=== PATIENT | female | born 1980 | race Caucasian/White ===

== ENCOUNTER 2018-10-06 09:48 | Emergency (ER) | payer OTHER ==
[2018-10-06 09:57] VITALS: BP 127/77; PULSE 87; TEMP 98.1; BMI 25.7
--- NOTE | 2018-10-06 10:16 | PDOC ---
Attending Attestation - Resident Resident Name: Zachery Acevedo - HPI HPI: 10/06/18 11:05 Pt presents to the ED complaining of a one day history of sore throat and generalized myalgias. Denies fever, nausea or vomiting. States that she is able to tolerate PO, although it hurts to swallow. History of frequent strep infections in the past. 10/06/18 11:05 10/06/18 11:11 - Physicial Exam PE: 10/06/18 11:13 Agree with resident exam. Patient is alert and oriented x 3 and in no acute distress. HEENT exam: no trismus, mild tonsilar swelling and erythema, with some exudate. - Medical Decision Making 10/06/18 11:14 Pt presents to the ED complaining of sore throat. Tolerating PO. Rapid strep is negative. Will check flu and discharge home if negative. Will consider tamiflu if flu is positive.
--- NOTE | 2018-10-06 10:19 | PDOC ---
History of Present Illness <Lolita Paul - Last Filed: 10/06/18 11:28> - History of Present Illness Initial Comments: 10/06/18 10:14 Ms. Ray is a 38 yo female w/ pmh of previous frequent strep throat ([employer] on left side 2 years) who presents for evaluation of 1 day history of body aches and sore throat. Patient complaining of fatigue and difficulty swallowing as well as chills and tension-like headache. The patient denies chest pain, shortness of breath, and dizziness. Denies fever , nausea, vomit, diarrhea and constipation. Denies dysuria, frequency, urgency and hematuria. 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) HTN: No - Reproductive History (#): 5 Para: 3 Cervical CA: No Dysfunctional Uterine Bleeding: No Ectopic : No Endometrial CA: No Polycystic Ovaries: No Therapeutic (s) & number: Yes (2) Tubal Ligation: No Spontaneous : 0 - Suicide/Smoking/Psychosocial Hx Smoking History: Never smoked Have you smoked in the past 12 months: No Hx Alcohol Use: No Drug/Substance Use Hx: No Substance Use Type: None <Zachery Acevedo - Last Filed: 10/06/18 13:52> - Past Medical History Allergies/Adverse Reactions: Allergies Allergy/AdvReac Type Severity Reaction Status Date / Time No Known Allergies Allergy Verified 07/23/13 13:24 Home Medications: Ambulatory Orders No Home Medications 0 dose .ROUTE UTDICT 07/20/13 Review of Systems - Review of Systems Comments:: 10/06/18 10:18 GENERAL/CONSTITUTIONAL: +Chills as described with body aches. No weakness. HEAD, EYES, EARS, NOSE AND THROAT: +Sore throat as described. No change in vision. No ear pain or discharge. CARDIOVASCULAR: No chest pain or shortness of breath RESPIRATORY: No cough, wheezing, or hemoptysis. GASTROINTESTINAL: No nausea, vomiting, diarrhea or constipation. GENITOURINARY: No dysuria, frequency, or change in urination. MUSCULOSKELETAL: No joint or muscle swelling or pain. No neck or back pain. SKIN: No rash NEUROLOGIC: +Headache as described, no vertigo, loss of consciousness, or change in strength/sensation. ENDOCRINE: No increased thirst. No abnormal weight change HEMATOLOGIC/LYMPHATIC: No anemia, easy bleeding, or history of blood clots. ALLERGIC/IMMUNOLOGIC: No hives or skin allergy. <Zachery Acevedo - Last Filed: 10/06/18 13:52> *Physical Exam - Vital Signs Last Vital Signs Temp Pulse Resp BP Pulse Ox 98.1 F 87 15 127/77 100 10/06/18 09:49 10/06/18 09:49 10/06/18 09:49 10/06/18 09:49 10/06/18 09:49 <Lolita Paul - Last Filed: 10/06/18 11:28> - Vital Signs Last Vital Signs Temp Pulse Resp BP Pulse Ox 98.1 F 87 15 127/77 100 10/06/18 09:49 10/06/18 09:49 10/06/18 09:49 10/06/18 09:49 10/06/18 09:49 - Physical Exam Comments: 10/06/18 10:18 GENERAL: Awake, alert, and fully oriented, in no acute distress HEAD: No signs of trauma, normocephalic, atraumatic EYES: PERRLA, EOMI, sclera anicteric, conjunctiva clear ENT: +Oropharynx significant for exudates BENITA. Auricles normal inspection, hearing grossly normal, nares patent. Moist mucosa NECK: Normal ROM, supple, no lymphadenopathy, JVD, or masses LUNGS: No distress, speaks full sentences, clear to auscultation bilaterally HEART: Regular rate and rhythm, normal S1 and S2, no murmurs, rubs or gallops, peripheral pulses normal and equal bilaterally. ABDOMEN: Soft, nontender, normoactive bowel sounds. No guarding, no rebound. No masses EXTREMITIES: Normal inspection, Normal range of motion, no edema. No clubbing or cyanosis. NEUROLOGICAL: Cranial nerves II through XII grossly intact. Normal speech, normal gait, no focal sensorimotor deficits SKIN: Warm, Dry, normal turgor, no rashes or lesions noted. <Zachery Acevedo - Last Filed: 10/06/18 13:52> Moderate Sedation - Procedure Monitoring Vital Signs: Procedure Monitoring Vital Signs Temperature 98.1 F 10/06/18 09:49 Pulse Rate 87 10/06/18 09:49 Respiratory Rate 15 10/06/18 09:49 Blood Pressure 127/77 10/06/18 09:49 O2 Sat by Pulse Oximetry (%) 100 10/06/18 09:49 <Lolita Paul - Last Filed: 10/06/18 11:28> - Procedure Monitoring Vital Signs: Procedure Monitoring Vital Signs Temperature 98.1 F 10/06/18 09:49 Pulse Rate 87 10/06/18 09:49 Respiratory Rate 15 10/06/18 09:49 Blood Pressure 127/77 10/06/18 09:49 O2 Sat by Pulse Oximetry (%) 100 10/06/18 09:49 <Zachery Acevedo - Last Filed: 10/06/18 13:52> Medical Decision Making - Medical Decision Making 10/06/18 13:51 Ms. Ray is a 38 yo female w/ pmh as described who presents for evaluation of sore throat concerning for strep vs. pharyngitis. Patient evaluated for flu / strep (both negative). Patient directed to treat symptomatically and given strict return precautions. No concern for acute process at this time. Discharged for further outpatient follow-up. <Zachery Acevedo - Last Filed: 10/06/18 13:52> *DC/Admit/Observation/Transfer - Discharge Dispostion Decision to Admit order: No <Lolita Paul - Last Filed: 10/06/18 11:28> <Zachery Acevedo - Last Filed: 10/06/18 13:52> Diagnosis at time of Disposition: Pharyngitis Qualifiers: Pharyngitis/tonsillitis etiology: unspecified etiology Qualified Code(s): J02.9 - Acute pharyngitis, unspecified - Discharge Dispostion Disposition: HOME Condition at time of disposition: Good - Patient Instructions Printed Discharge Instructions: DI for Viral Pharyngitis Additional Instructions: you came to the Ed for a sore throat. The test for strep throat was negative. The flu test is not back yet--we will call you with the results if the test is positive. Your sore throat is most likely caused by a virus. You should stay home and rest and get plenty of fluids. You can take motrin or tylenol over the counter for pain. Return to the ED for fever, severe pain, difficulty breathing swallowing or opening your mouth, other new or worsening symptoms.
== END 2018-10-06 11:38 | disposition home or self-care (01) ==
LOC: FER 09:48
DX: J02.9 Acute pharyngitis, unspecified (principal)
CPT/HCPCS: 87070; 87804; 87880; 99282-25